=== PATIENT | male | born 1985 | race Caucasian/White ===

== ENCOUNTER 2019-06-10 19:18 | Emergency (ER) | payer OTHER ==
[~2019-06-10] VITALS: Ht 185.4 cm; Wt 121.1 kg
[2019-06-10 19:41] VITALS: Ht 185.4 cm; Wt 121.1 kg
[2019-06-10 20:57] VITALS: BP 139/83
== END 2019-06-10 20:57 | disposition home or self-care (01) ==
LOC: ED 19:18
DX: R10.33 Periumbilical pain (principal)

== ENCOUNTER 2019-12-13 12:22 | Emergency (ER) | payer OTHER ==
[~2019-12-13] VITALS: Ht 185.4 cm; Wt 118.8 kg
[2019-12-13 12:32] VITALS: Ht 185.4 cm; Wt 118.8 kg
[2019-12-13 18:38] VITALS: BP 112/75
== END 2019-12-13 18:38 | disposition home or self-care (01) ==
LOC: ED 12:22
DX: S61.210A Laceration without foreign body of right index finger without damage to nail, initial encounter (principal); Z98.890 Other specified postprocedural states; W20.8XXA Other cause of strike by thrown, projected or falling object, initial encounter; Y93.89 Activity, other specified; Y92.89 Other specified places as the place of occurrence of the external cause; Y99.8 Other external cause status
CPT/HCPCS: 90715; J0696; J2001